=== PATIENT | male | born 1960 | race Caucasian/White ===

== ENCOUNTER → 2020-07-21 | Outpatient (CLI) | payer MEDICARE, OTHER ==
[~2020-07-21] MED LIST: ARTHRITIS PAIN100 GM TOP; CELECOXIB100 MG PO; DULOXETINE HCL30 MG PO; FENOFIBRATE160 MG PO; FLOMAX0.4 MG PO; HYDROCHLOROTHIA50 MG PO; HYDROCODON-ACE1 EAC6 PO; KEPPRA 500 MG500 MG PO; LEVOTHYROXINE50 MC1 PO; NEURONTIN600 MG PO; PROTONIX40 MG PO; ROPINIROLE HCL2 MG PO; STOOL SOFTENER100 M1 PO; TOPAMAX 25 MG T25 MG PO; TOPROL XL 50 MG50 MG PO; VITAMIN D21250 MCG PO; ZOLPIDEM TARTRAT5 MG PO
== END ==
LOC: KOH-I 14:43
DX: M25.571 Pain in right ankle and joints of right foot (principal)
CPT/HCPCS: 73610; 73630

== ENCOUNTER → 2020-08-11 | Outpatient (CLI) | payer MEDICARE, OTHER ==
[2020-08-11 13:05] LABS: HEMOGLOBIN 15.1 gm/dl (14.0-17.5); RED BLOOD COUNT 4.4 M/UL (4.20-5.50); WHITE BLOOD COUNT 6.7 K/UL (4.5-11.0)
[2020-08-11 13:31] LABS: BUN/CREATININE RATIO 14 (0-10)
== END ==
LOC: OPSV2 11:30
PROVIDERS: Podiatrist Foot & Ankle Surgery
DX: Z01.818 Encounter for other preprocedural examination (principal); T84.84XA Pain due to internal orthopedic prosthetic devices, implants and grafts, initial encounter
CPT/HCPCS: 36415; 80048; 85027; 93005

== ENCOUNTER → 2020-08-17 | Day surgery (SDC) | payer MEDICARE, OTHER ==
[~2020-08-17] VITALS: Ht 188 cm; Wt 120.2 kg
== END | disposition home or self-care (01) ==
LOC: OR 07:39
DX: T84.84XA Pain due to internal orthopedic prosthetic devices, implants and grafts, initial encounter (principal); M79.2 Neuralgia and neuritis, unspecified; G89.28 Other chronic postprocedural pain; K21.9 Gastro-esophageal reflux disease without esophagitis; E03.9 Hypothyroidism, unspecified; I10 Essential (primary) hypertension; E78.5 Hyperlipidemia, unspecified; J44.9 Chronic obstructive pulmonary disease, unspecified; F17.210 Nicotine dependence, cigarettes, uncomplicated; M19.90 Unspecified osteoarthritis, unspecified site; F41.8 Other specified anxiety disorders; Z88.6 Allergy status to analgesic agent; Z88.8 Allergy status to other drugs, medicaments and biological substances; Z79.891 Long term (current) use of opiate analgesic; Z79.899 Other long term (current) drug therapy
CPT/HCPCS: 73610; 76000; J0690; J1100; J2250; J2405; J2704; J2795; J3010; J3370; J7030; J7120